=== PATIENT | male | born 1990 | race Two or more races ===

== ENCOUNTER 2025-02-22 15:27 | Emergency (ER) | payer OTHER ==
[~2025-02-22] VITALS: Ht 190.5 cm; Wt 86.2 kg
[2025-02-22 16:14] VITALS: BP 102/71; O2SAT 99
[2025-02-22] MEDS ORDERED: KETOROLAC TROMETHAMINE 30 MG VIAL IV ONE (16:45)
[2025-02-22] MEDS ORDERED: KETOROLAC TROMETHAMINE 30 MG VIAL ONE (16:53)
[2025-02-22 17:24] LABS: BASO % 0.2 % (0.1-1.2); EOS # 0.09 (0.04-0.54); EOS % 0.7 % (0.7-7.0); LYMPH # 2.13 (1.18-3.74); LYMPH % 17.4 % (19.3-53.1); MEAN PLATELET VOLUME 11.20 fl (9.4-12.4); MONO # 1.29 (0.24-0.82); MONO % 10.6 % (4.7-12.5); NEUT # 8.59 (1.56-6.13); NEUT % 70.4 % (34.0-71.1); RED CELL DISTRIBUTION WIDTH 12.1 % (11.6-14.4)
[2025-02-22 17:40] LABS: COVID-19 AG NEGATIVE (NEGATIVE)
[2025-02-22 17:57] LABS: ALT/SGPT 36.0 U/L (12-78); AST/SGOT 20.0 U/L (15-37); BILIRUBIN TOTAL 0.77 mg/dL (0.3-1.2); BUN CREA RATIO 8.0 (7.0-25.0); CREATININE SERUM 1.65 mg/dL (0.70-1.30); GFR 47.71; GLOBULINA 3.8 G/DL (2.4-3.5); GLUCOSE FASTING 89.0 mg/dL (65-100); LDH 192.0 U/L (87-241); OSMOLALITY SERUM 283.0 MOSM/KG (275-295); PHOSPHOKINASE CREATININE 206.0 U/L (39-308)
[2025-02-22] MEDS ORDERED: 0.9 % SODIUM CHLORIDE 1,000 ML IV SCH (19:30)
[2025-02-22 22:10] LABS: METHADONE NEGATIVE (NEGATIVE); THC ( Cannabinoids) POSITIVE (NEGATIVE)
[2025-02-22 22:16] LABS: URINE APPEARANCE Turbid; URINE BILIRRUBIN Moderate (NEGATIVE); URINE BLOOD Negative; URINE COLOR Dark Yellow; URINE GLUCOSE Negative (NEGATIVE); URINE KETONE 15 (NEGATIVE); URINE LEUKOCYTE Trace; URINE NITRATE Negative; URINE UROBILINOGEN 1.0 E.U./dl
[2025-02-22 22:19] LABS: COCAINE POSITIVE (NEGATIVE); OPIATES POSITIVE (NEGATIVE); URINE BACTERIA 41.9 uL (0.0-1933); URINE EPITHELIAL CELLS 19.6 uL (0.0-38.8); URINE RBC 84.0 uL (0.0-20.8); URINE WBC 13.0 uL (0.0-23.2)
[2025-02-22 22:34] LABS: URINE CAST > 21.83 uL (0.0-1.40); URINE CRYSTALS MANY /HPF; URINE PROTEIN 100 (NEGATIVE)
== END 2025-02-22 23:53 | disposition home or self-care (01) ==
LOC: ER 15:27
PROVIDERS: General Practice
DX: R07.89 Other chest pain (principal); F19.10 Other psychoactive substance abuse, uncomplicated; Z20.822 Contact with and (suspected) exposure to COVID-19